=== PATIENT | female | born 1995 | race Caucasian/White ===

== ENCOUNTER 2020-01-07 08:39 | Outpatient (CLI) | payer OTHER, MEDICAID, SELFPAY ==
--- NOTE | ~2020-01-07 | US_ITS ---
EXAMINATION: US OB follow up DATE: 01/07/2020 09:12 INDICATION: Bicornuate uterus. History of miscarriage. TECHNIQUE: Real-time transabdominal obstetric ultrasound. FINDINGS: Comparison ultrasound dated 11/19/2019 There is a single living fetus in transverse presentation. The placenta is anterior without placenta previa. Placental margin is 3.6 cm to the cervix. cardiac activity and movement is noted with a heart rate of 163 beats per minute. T he amniotic fluid volume is subjectively normal. The following biometric data were obtained: BPD: 27mm corresponds to gestational age 14 weeks 6 days. Head circumference: 109mm corresponds to gestational age 15 weeks 2 days. Abdominal circumference: 95mm corresponds to gestational age 15 weeks 4 days. Femur length: 15mm corresponds to gestational age 14 weeks 3 days. Estimated weight: 112grams +/- 17grams.] IMPRESSION: 1. Single living intrauterine in transverse presentation with an estimated gestational age of 14 weeks 3 days by inititial ultrasound. EDC by initial ultrasound is 07/04/2020. Appropriate inte rval growth. Reviewed, dictated and finalized at location A. R BOOKER IMPRESSION: 1. Single living intrauterine in transverse presentation with an est imated gestational age of 14 weeks 3 days by inititial ultrasound. EDC by initi al ultrasound is 07/04/2020. Appropriate interval growth.
== END 2020-01-07 08:40 | disposition home or self-care (01) ==
LOC: ANHIMG 08:41
PROVIDERS: Visit Provider Obstetrics & Gynecology
DX: O34.02 Maternal care for unspecified congenital malformation of uterus, second trimester (principal); Q51.3 Bicornate uterus; Z3A.14 14 weeks gestation of pregnancy
CPT/HCPCS: 76816

== ENCOUNTER 2020-02-21 10:14 | Outpatient (CLI) | payer OTHER, SELFPAY | END 2020-02-21 11:10 | disposition home or self-care (01) | LOC: ANHOBOP 10:51 → ANHOBPP 10:52 | PROVIDERS: Visit Provider Obstetrics & Gynecology | DX: O26.859 Spotting complicating pregnancy, unspecified trimester (principal); Z3A.00 Weeks of gestation of pregnancy not specified | CPT/HCPCS: 84112; 99199 ==

== ENCOUNTER 2020-03-29 10:41 | Outpatient (CLI) | payer OTHER, MEDICAID, SELFPAY ==
[2020-03-29 12:01] LABS: Basophils Percent Auto 0.2 % (0.2-1.2); Eosinophils Absolute Auto 0.1 K/mm3 (0-0.3); Eosinophils Percent Auto 0.8 % (0-4.4); Hemoglobin 11.1 g/dL (12.0-15.0); Immature Granulocyte Absolute 0.05 K/mm3 (0.00-0.031); Immature Granulocyte Percent A 0.4 % (0-0.5); Lymphocytes Absolute Auto 1.41 K/mm3 (0.9-3.2); Lymphocytes Percent Auto 11.7 % (18.3-44.2); Mean Corpuscular HGB Conc 32.6 g/dl (32-36); Mean Corpuscular Hemoglobin 30.5 pg (26-34); Mean Corpuscular Volume 93.4 fl (80-100); Mean Platelet Volume 10.6 fl (7.4-10.4); Monocytes Absolute Auto 0.7 K/mm3 (0.1-0.6); Monocytes Percent Auto 5.7 % (2.6-8.5); Neutrophils Absolute Auto 9.7 K/mm3 (1.3-6.7); Neutrophils Percent Auto 81.2 % (45.5-73.1); Platelet Count Result 208 k/mm3 (150-375); Red Blood Count 3.64 M/mm3 (4.2-5.4); Red Cell Distribution Width 13.5 % (11.5-14.5)
[2020-03-29 12:19] LABS: Glucose 1 Hour PP 50gm Dose 130 mg/dL
== END 2020-03-29 10:42 | disposition home or self-care (01) ==
LOC: ANHLAB 10:43
PROVIDERS: PCP Family Medicine; Visit Provider Obstetrics & Gynecology
DX: Z34.90 Encounter for supervision of normal pregnancy, unspecified, unspecified trimester (principal); Z3A.00 Weeks of gestation of pregnancy not specified
CPT/HCPCS: 36415; 82947; 85025

== ENCOUNTER 2020-04-04 08:07 | Outpatient (CLI) | payer OTHER, MEDICAID, SELFPAY ==
[2020-04-04 08:31] LABS: Glucose Fasting 88 mg/dL
[2020-04-04 10:03] LABS: Glucose 1 Hour 137 mg/dL
[2020-04-04 11:12] LABS: Glucose 2 Hour 140 mg/dL
[2020-04-04 12:13] LABS: Glucose 3 Hour 123 mg/dL
== END 2020-04-04 08:08 | disposition home or self-care (01) ==
PROVIDERS: PCP Family Medicine; Visit Provider Obstetrics & Gynecology
DX: R73.01 Impaired fasting glucose (principal); O09.892 Supervision of other high risk pregnancies, second trimester; Z3A.00 Weeks of gestation of pregnancy not specified
CPT/HCPCS: 36415; 82951; 82952

== ENCOUNTER 2020-04-21 21:45 | Observation (INO) | payer OTHER, MEDICAID, SELFPAY ==
[2020-04-21] VITALS (8 sets, daily range): BP systolic 118–135; BP diastolic 69–85; PULSE 88–106; TEMP 36.8
--- NOTE | 2020-04-21 22:08 | PC.NURSE ---
2144- pt came to L&D c/o abdominal pain with tenderness all over, vaginal pressure, lower back pain that has been constant since 1930 tonight. denies bleeding. pt took tylenol at 1930 .
[2020-04-21 22:55] LABS: Add Urine Microscopic? YES; Appearance Urine Clear (Clear); Bacteria Urine Trace /hpf; Bilirubin Urine Negative (Negative); Blood Urine Negative (Negative); Color Urine Straw (Yellow); Glucose Urine UA Negative (Negative); Ketones Urine Trace mg/dL (Negative); Leukocyte Esterase Ur Negative LEU/UL (NEGATIVE); Nitrate Urine Negative (Negative); Protein Urine Negative (Negative); RBC Urine 0-2 /hpf (0-2); Specific Grav Ur 1.009 (1.001-1.035); Squamous Epithelial Cell Urine Few /hpf (Few); Urobilinogen Urine Negative mg/dL (<2.0); WBC Urine 0-3 /hpf (0-3)
[2020-04-21 23:24] LABS: Basophils Absolute Auto 0.1 K/mm3 (0.0-0.1); Basophils Percent Auto 0.3 % (0.2-1.2); Eosinophils Absolute Auto 0.1 K/mm3 (0-0.3); Eosinophils Percent Auto 0.7 % (0-4.4); Hemoglobin 10.5 g/dL (12.0-15.0); Immature Granulocyte Absolute 0.08 K/mm3 (0.00-0.031); Immature Granulocyte Percent A 0.5 % (0-0.5); Lymphocytes Percent Auto 10.5 % (18.3-44.2); Mean Corpuscular HGB Conc 32.8 g/dl (32-36); Mean Corpuscular Hemoglobin 30.4 pg (26-34); Mean Corpuscular Volume 92.8 fl (80-100); Mean Platelet Volume 10.9 fl (7.4-10.4); Monocytes Absolute Auto 0.9 K/mm3 (0.1-0.6); Monocytes Percent Auto 5.4 % (2.6-8.5); Neutrophils Absolute Auto 13.4 K/mm3 (1.3-6.7); Neutrophils Percent Auto 82.6 % (45.5-73.1); Platelet Count Result 180 k/mm3 (150-375); Red Blood Count 3.45 M/mm3 (4.2-5.4); Red Cell Distribution Width 13.4 % (11.5-14.5); White Blood Count 16.2 K/mm3 (4.5-10.0)
[2020-04-21 23:48] LABS: Alanine Aminotransferase 16 U/L (4-35); Albumin Level 3.8 g/dL (3.5-5.1); Alkaline Phosphatase 151 U/L (38-126); Aspartate Amino Transferase 29 U/L (14-36); Bilirubin,Total 0.2 mg/dL (0.2-1.3); Blood Urea Nitrogen 8 mg/dL (7-17); Calcium 9.6 mg/dL (8.4-10.2); Carbon Dioxide 25 mmol/L (22-30); Chloride 100 mmol/L (98-107); Estimated Glomerular Filt Rate > 60; Glucose 91 mg/dL (65-105); Potassium 3.6 mmol/L (3.4-5.0); Sodium 131 mmol/L (137-145)
[2020-04-22] VITALS: BP 122/84; PULSE 91
[2020-04-22 00:13] VITALS: BMI 33.7
--- NOTE | 2020-04-22 00:14 | LDADM ---
This patient, Ashley Katz, was admitted to [facility] on 04/21/20 at 21:45. Plans for labor, pain management and were discussed with patient. Patient/family oriented to hospital policies and general routines including ID bracelet, bed and alarms, visiting hours, pain management, procedures, bathroom and other care routines, personal items, smoking policy, room service/diet and guest tray routines, infant security routines, and visiting hours. Patient/Family are encouraged to report perceived risks to care and to ask questions if they do not understand what they are told or what they should do. See OBIX for further documentation.
--- NOTE | 2020-05-15 07:45 | P.PNOB_ITS ---
OB - Triage/Final Diagnosis Evaluation Laboratory results: Laboratory Tests 04/21/20 04/21/20 04/21/20 22:44 23:11 23:11 WBC 16.2 H RBC 3.45 L Hgb 10.5 L Hct 32.0 L MCV 92.8 MCH 30.4 MCHC 32.8 RDW 13.4 Plt Count 180 MPV 10.9 H Immature Gran % (Auto) 0.5 Neut % (Auto) 82.6 H Lymph % (Auto) 10.5 L [place] % (Auto) 5.4 Eos % (Auto) 0.7 Baso % (Auto) 0.3 Lymph # (Auto) 1.70 [place] # (Auto) 0.9 H Eos # (Auto) 0.1 Baso # (Auto) 0.1 Abs Immat Gran (auto) 0.08 H Absolute Neuts (auto) 13.4 H Absolute Nucleated RBC 0.0 Nucleated RBC % 0.0 Sodium 131 L Potassium 3.6 Chloride 100 Carbon Dioxide 25 BUN 8 Creatinine 0.60 L Estim Creat Clear Calc Not Reportable Estimated GFR > 60 Glucose 91 Calcium 9.6 Total Bilirubin 0.2 AST 29 ALT 16 Alkaline Phosphatase 151 H Total Protein 7.0 Albumin 3.8 Urine Color Straw Urine Appearance Clear Urine pH 6.0 Ur Specific [place] 1.009 Urine Protein Negative Urine Glucose (UA) Negative Urine Ketones Trace Ur Blood (Man) Negative Urine Nitrate Negative Urine Bilirubin Negative Urine Urobilinogen Negative Ur Leukocyte Esterase Negative Urine RBC 0-2 Urine WBC 0-3 Ur Squamous Epith Cells Few Urine Bacteria Trace Hyaline Casts 1-2 Final Diagnosis (1) Pain of round ligament affecting , antepartum: Code(s): O26.899 - Other specified related conditions, unspecified trimester; R10.2 - Pelvic and perineal pain Status: Acute
== END 2020-04-22 00:22 | disposition home or self-care (01) ==
PROVIDERS: Admitting Provider Obstetrics & Gynecology; PCP Family Medicine; Visit Provider Obstetrics & Gynecology
DX: O26.893 Other specified pregnancy related conditions, third trimester (principal); R10.9 Unspecified abdominal pain; Z3A.29 29 weeks gestation of pregnancy
CPT/HCPCS: 36415; 80053; 81001; 85025; 87086; G0378; G0379

== ENCOUNTER 2020-05-08 15:38 | Outpatient (CLI) | payer OTHER, MEDICAID, SELFPAY ==
--- NOTE | ~2020-05-08 | US_ITS ---
EXAMINATION: US OB follow up DATE: 05/08/2020 16:21 INDICATION: Estimated weight and amniotic fluid index assessment during third trimester pregnan cy TECHNIQUE: Real-time ultrasound of the pelvis was performed. The interpreting radiologist was not pre sent for the study. COMPARISON: 01/07/2020 FINDINGS: There is a single living fetus in vertex presentation. The placenta is anterior. card iac activity and movement are noted. heart rate is 154 beats per minute (bpm). The amniot ic fluid index is 22.9 cm which is normal. The following biometric data were obtained: Biparietal diameter (BPD): 8.7 cm; head circumference (HC): 30.4 cm; abdominal circumference (AC): 29 .0 cm; femur length (FL): 6.3 cm. These measurements are concordant. Estimated weight is 2149 g +/- 322 g, which correlates with the 75th percentile when 07/02/2020 is used as estimated date of delivery. As single measurements, these parameters are each equal to the following estimated gestational ages w ith ranges of +/- 2 standard deviations: BPD: 35 weeks 1 days +/- 3 weeks 1 days. HC: 33 weeks 6 days +/- 3 weeks 0 days. AC: 33 weeks 0 days +/- 3 weeks 0 days. FL: 32 weeks 5 days +/- 3 weeks 0 days. estimated gestational age based solely on measurements from this exam is 33 weeks 5 days +/- 2 weeks 3 days. IMPRESSION: 1. Single living fetus in vertex presentation. 2. Normal amniotic fluid index. 3. Estimated weight is 2149 g +/- 322 g, which correlates with the 75th percentile when 07/02/20 20 is used as estimated date of delivery. Reviewed, dictated and finalized at location A. IMPRESSION: 1. Single living fetus in vertex presentation. 2. Normal amniotic fluid index. 3. Estimated weight is 2149 g +/- 322 g, which correlates with the 75th p ercentile when 07/02/2020 is used as estimated date of delivery.
== END 2020-05-08 15:39 | disposition home or self-care (01) ==
PROVIDERS: PCP Family Medicine; Visit Provider Obstetrics & Gynecology
DX: O09.893 Supervision of other high risk pregnancies, third trimester (principal); Z3A.00 Weeks of gestation of pregnancy not specified
CPT/HCPCS: 76816

== ENCOUNTER 2020-05-14 10:15 | Outpatient (CLI) | payer OTHER, MEDICAID, SELFPAY ==
[2020-05-14 10:31] VITALS: BP 126/83; PULSE 112
[2020-05-14 10:45] VITALS: BP 126/83; PULSE 83
[2020-05-14 11:00] VITALS: BP 120/78; PULSE 112
[2020-05-14 11:00] LABS: Basophils Percent Auto 0.4 % (0.2-1.2); Eosinophils Absolute Auto 0.1 K/mm3 (0-0.3); Eosinophils Percent Auto 0.8 % (0-4.4); Hematocrit 31.8 % (37.0-47.0); Hemoglobin 10.4 g/dL (12.0-15.0); Immature Granulocyte Absolute 0.05 K/mm3 (0.00-0.031); Immature Granulocyte Percent A 0.4 % (0-0.5); Lymphocytes Absolute Auto 1.32 K/mm3 (0.9-3.2); Lymphocytes Percent Auto 11.7 % (18.3-44.2); Mean Corpuscular HGB Conc 32.7 g/dl (32-36); Mean Corpuscular Hemoglobin 30.1 pg (26-34); Mean Corpuscular Volume 91.9 fl (80-100); Mean Platelet Volume 11.7 fl (7.4-10.4); Monocytes Percent Auto 8.7 % (2.6-8.5); Neutrophils Absolute Auto 8.8 K/mm3 (1.3-6.7); Platelet Count Result 183 k/mm3 (150-375); Red Blood Count 3.46 M/mm3 (4.2-5.4); Red Cell Distribution Width 13.9 % (11.5-14.5); White Blood Count 11.3 K/mm3 (4.5-10.0)
[2020-05-14 11:05] LABS: Add Urine Microscopic? YES; Appearance Urine Clear (Clear); Bacteria Urine 2+ /hpf; Bilirubin Urine Negative (Negative); Blood Urine Negative (Negative); Calcium Oxalate Crystals Urine Present /hpf; Color Urine Yellow (Yellow); Glucose Urine UA Negative (Negative); Ketones Urine Negative (Negative); Leukocyte Esterase Ur Trace LEU/UL (NEGATIVE); Mucus Urine Few /lpf; Nitrate Urine Negative (Negative); Protein Urine 1+ mg/dL (Negative); RBC Urine 0-2 /hpf (0-2); Specific Grav Ur 1.026 (1.001-1.035); Squamous Epithelial Cell Urine Many /hpf (Few); Urobilinogen Urine Negative mg/dL (<2.0)
[2020-05-14 11:10] LABS: Creatinine Urine 205.5 mg/dL; Total Protein Urine Random 16 mg/dL
[2020-05-14 11:11] LABS: Alanine Aminotransferase 15 U/L (4-35); Albumin Level 3.8 g/dL (3.5-5.1); Alkaline Phosphatase 158 U/L (38-126); Aspartate Amino Transferase 23 U/L (14-36); Bilirubin,Total 0.1 mg/dL (0.2-1.3); Blood Urea Nitrogen 6 mg/dL (7-17); Calcium 9.1 mg/dL (8.4-10.2); Carbon Dioxide 24 mmol/L (22-30); Chloride 104 mmol/L (98-107); Estimated Glomerular Filt Rate > 60; Glucose 94 mg/dL (65-105); Sodium 133 mmol/L (137-145); Uric Acid 4.9 mg/dL (2.5-7.5)
[2020-05-14 11:16] VITALS: BP 109/64; PULSE 109
== END 2020-05-14 11:30 | disposition home or self-care (01) ==
LOC: ANHOBOP 10:20 → ANHOBPP 10:20
PROVIDERS: PCP Family Medicine; Visit Provider Obstetrics & Gynecology
DX: O13.9 Gestational [pregnancy-induced] hypertension without significant proteinuria, unspecified trimester (principal)
CPT/HCPCS: 36415; 59025; 80053; 81001; 82570; 84156; 84550; 85025; 87086; 87088; 99199

== ENCOUNTER 2020-05-15 11:35 | Outpatient (CLI) | payer OTHER, MEDICAID, SELFPAY ==
[2020-05-15 11:47] VITALS: BMI 35.0
[2020-05-15 12:41] LABS: Creatinine 24 Hour Urine 1.4 gm/24 (0.8-1.8); Total Volume 24 Hour Urine 1600 ml
[2020-05-15 12:44] LABS: Total Protein Urine Random 10 mg/dL
[2020-05-15 13:01] LABS: Total Protein Urine 24 Hr 160 MG/DAY (28-141); Total Volume 24 Hour Urine 1600 ml
== END 2020-05-15 11:36 | disposition home or self-care (01) ==
LOC: ANHOBOP 11:42
PROVIDERS: PCP Family Medicine; Visit Provider Obstetrics & Gynecology
DX: O13.9 Gestational [pregnancy-induced] hypertension without significant proteinuria, unspecified trimester (principal)
CPT/HCPCS: 81050; 82570; 84156

== ENCOUNTER 2020-05-29 15:48 | Outpatient (CLI) | payer OTHER, MEDICAID, SELFPAY ==
[2020-05-29 16:10] VITALS: BP 129/80; PULSE 95
[2020-05-29 16:15] VITALS: BP 135/79; PULSE 91
[2020-05-29 16:30] VITALS: BP 126/79; PULSE 86
[2020-05-29 16:45] VITALS: BP 122/84; PULSE 92
[2020-05-29 17:13] LABS: Basophils Percent Auto 0.4 % (0.2-1.2); Eosinophils Absolute Auto 0.1 K/mm3 (0-0.3); Eosinophils Percent Auto 0.7 % (0-4.4); Hematocrit 28.9 % (37.0-47.0); Hemoglobin 9.4 g/dL (12.0-15.0); Immature Granulocyte Absolute 0.04 K/mm3 (0.00-0.031); Immature Granulocyte Percent A 0.4 % (0-0.5); Lymphocytes Absolute Auto 1.47 K/mm3 (0.9-3.2); Lymphocytes Percent Auto 13.6 % (18.3-44.2); Mean Corpuscular HGB Conc 32.5 g/dl (32-36); Mean Corpuscular Hemoglobin 29.7 pg (26-34); Mean Corpuscular Volume 91.5 fl (80-100); Mean Platelet Volume 11.7 fl (7.4-10.4); Monocytes Absolute Auto 0.9 K/mm3 (0.1-0.6); Monocytes Percent Auto 7.9 % (2.6-8.5); Neutrophils Absolute Auto 8.3 K/mm3 (1.3-6.7); Platelet Count Result 161 k/mm3 (150-375); Red Blood Count 3.16 M/mm3 (4.2-5.4); Red Cell Distribution Width 14.2 % (11.5-14.5); White Blood Count 10.8 K/mm3 (4.5-10.0)
[2020-05-29 17:15] VITALS: BP 132/78; PULSE 83
[2020-05-29 17:24] LABS: Alanine Aminotransferase 15 U/L (4-35); Albumin Level 3.3 g/dL (3.5-5.1); Alkaline Phosphatase 146 U/L (38-126); Aspartate Amino Transferase 23 U/L (14-36); Bilirubin,Total < 0.1 mg/dL (0.2-1.3); Blood Urea Nitrogen 10 mg/dL (7-17); Calcium 8.8 mg/dL (8.4-10.2); Carbon Dioxide 23 mmol/L (22-30); Chloride 105 mmol/L (98-107); Estimated Glomerular Filt Rate > 60; Glucose 101 mg/dL (65-105); Potassium 3.8 mmol/L (3.4-5.0); Sodium 134 mmol/L (137-145); Uric Acid 5.3 mg/dL (2.5-7.5)
[2020-05-29 17:30] VITALS: BP 133/85; PULSE 82
--- NOTE | 2020-05-29 17:30 | PC.NURSE ---
Dr. Garcia on unit. BPs given and lab results given. March D/C home with 24hr urine.
[2020-05-29 17:41] LABS: Creatinine Urine 296.1 mg/dL; Total Protein Urine Random 16 mg/dL
== END 2020-05-29 17:35 | disposition home or self-care (01) ==
LOC: ANHOBOP 15:52 → ANHOBPP 15:52
PROVIDERS: PCP Family Medicine; Visit Provider Obstetrics & Gynecology
DX: O13.9 Gestational [pregnancy-induced] hypertension without significant proteinuria, unspecified trimester (principal); Z3A.00 Weeks of gestation of pregnancy not specified
CPT/HCPCS: 36415; 59025; 80053; 82570; 84156; 84550; 85025; 99199

== ENCOUNTER 2020-05-31 12:43 | Outpatient (CLI) | payer OTHER, MEDICAID, SELFPAY ==
[2020-05-31 13:01] VITALS: BMI 36.1
[2020-05-31 14:11] LABS: Collection Time Urine 24 HOURS
[2020-05-31 14:25] LABS: Patient Weight 210 Lbs; Total Protein Urine Random 14 mg/dL
[2020-05-31 14:37] LABS: Creatinine Clearance Urine 109.4 ml/min (75-125); Total Protein Urine 24 Hr 164 MG/DAY (28-141); Total Volume 24 Hour Urine 1175 ml
== END 2020-05-31 12:44 | disposition home or self-care (01) ==
LOC: ANHOBOP 12:47
PROVIDERS: PCP Family Medicine; Visit Provider Obstetrics & Gynecology
DX: O13.9 Gestational [pregnancy-induced] hypertension without significant proteinuria, unspecified trimester (principal)
CPT/HCPCS: 81050; 82575; 84156

== ENCOUNTER 2020-06-05 09:43 | Outpatient (CLI) | payer OTHER, MEDICAID, SELFPAY ==
--- NOTE | ~2020-06-05 | US_ITS ---
EXAMINATION: US OB limited w BPP DATE: 06/05/2020 11:29 INDICATION: Hypertension. TECHNIQUE: Real-time pelvic ultrasound was performed. COMPARISON: Ultrasound 05/08/2020 FINDINGS: There is a single living fetus in vertex presentation. The placenta is anterior. heart rate is 147 beats per minute (bpm). The amniotic fluid index is 25.3 cm, which is high (95th percentile is 2 4.9 cm) Biophysical profile performed by the technologist: breathing (30 sec sustained breathing in 30 minutes): 2 out of 2 movement (3 gross body movements in 30 minutes): 2 out of 2 tone (one episode of krqtbde-dupioygas-vrwzwmk limb movement): 2 out of 2 Amniotic fluid pocket (2 cm): 2 out of 2 Total score: 8 out of 8 IMPRESSION: 1. Single living fetus in vertex presentation. 2. Biophysical profile 8 out of 8. 3. Polyhydramnios. Reviewed, dictated and finalized at location A.
[2020-06-05 09:58] VITALS: BP 133/92; PULSE 80
[2020-06-05 10:15] VITALS: BP 130/86; PULSE 93
[2020-06-05 10:30] VITALS: BP 131/81; PULSE 88
[2020-06-05 10:31] VITALS: BP 131/81; PULSE 88
[2020-06-05 10:49] LABS: Basophils Percent Auto 0.4 % (0.2-1.2); Eosinophils Absolute Auto 0.1 K/mm3 (0-0.3); Eosinophils Percent Auto 0.6 % (0-4.4); Hematocrit 31.4 % (37.0-47.0); Hemoglobin 10.1 g/dL (12.0-15.0); Immature Granulocyte Absolute 0.04 K/mm3 (0.00-0.031); Immature Granulocyte Percent A 0.4 % (0-0.5); Lymphocytes Absolute Auto 1.15 K/mm3 (0.9-3.2); Lymphocytes Percent Auto 11.4 % (18.3-44.2); Mean Corpuscular HGB Conc 32.2 g/dl (32-36); Mean Corpuscular Hemoglobin 29.5 pg (26-34); Mean Corpuscular Volume 91.8 fl (80-100); Mean Platelet Volume 12.4 fl (7.4-10.4); Monocytes Absolute Auto 0.9 K/mm3 (0.1-0.6); Monocytes Percent Auto 8.4 % (2.6-8.5); Neutrophils Absolute Auto 7.9 K/mm3 (1.3-6.7); Neutrophils Percent Auto 78.8 % (45.5-73.1); Platelet Count Result 169 k/mm3 (150-375); Red Blood Count 3.42 M/mm3 (4.2-5.4); Red Cell Distribution Width 14.5 % (11.5-14.5); White Blood Count 10.1 K/mm3 (4.5-10.0)
[2020-06-05 10:53] LABS: Add Urine Microscopic? YES; Appearance Urine Cloudy (Clear); Bacteria Urine 2+ /hpf; Bilirubin Urine Negative (Negative); Blood Urine Negative (Negative); Color Urine Yellow (Yellow); Glucose Urine UA Negative (Negative); Ketones Urine Negative (Negative); Leukocyte Esterase Ur 1+ LEU/UL (NEGATIVE); Mucus Urine Few /lpf; Nitrate Urine Negative (Negative); Protein Urine 2+ mg/dL (Negative); Specific Grav Ur 1.024 (1.001-1.035); Squamous Epithelial Cell Urine Many /hpf (Few); Urobilinogen Urine Negative mg/dL (<2.0)
[2020-06-05 11:00] LABS: Alanine Aminotransferase 15 U/L (4-35); Albumin Level 3.6 g/dL (3.5-5.1); Alkaline Phosphatase 153 U/L (38-126); Aspartate Amino Transferase 21 U/L (14-36); Bilirubin,Total < 0.1 mg/dL (0.2-1.3); Blood Urea Nitrogen 8 mg/dL (7-17); Calcium 9.4 mg/dL (8.4-10.2); Carbon Dioxide 24 mmol/L (22-30); Chloride 103 mmol/L (98-107); Creatinine Urine 266.2 mg/dL; Estimated Glomerular Filt Rate > 60; Glucose 82 mg/dL (65-105); Potassium 4.1 mmol/L (3.4-5.0); Sodium 132 mmol/L (137-145); Total Protein Urine Random 55 mg/dL; Uric Acid 5.9 mg/dL (2.5-7.5)
[2020-06-05 11:40] LABS: HIV 1/2 Ab P24 Ag Result Negative (Negative)
[2020-06-05 11:56] LABS: Rapid Plasma Reagin Non-Reactive (NonReactive)
== END 2020-06-05 11:55 | disposition home or self-care (01) ==
LOC: ANHOBOP 09:51 → ANHOBPP 09:52
PROVIDERS: PCP Family Medicine; Visit Provider Obstetrics & Gynecology
DX: O13.9 Gestational [pregnancy-induced] hypertension without significant proteinuria, unspecified trimester (principal); O40.9XX0 Polyhydramnios, unspecified trimester, not applicable or unspecified; Z3A.00 Weeks of gestation of pregnancy not specified
CPT/HCPCS: 36415; 59025; 76815; 76819; 80053; 81001; 82570; 84156; 84550; 85025; 86592; 86703; 87086; 87088; 99199; G0432

== ENCOUNTER 2020-06-08 09:35 | Outpatient (RCR) | payer OTHER, MEDICAID, SELFPAY ==
[2020-06-01 19:13] VITALS: BP 138/86; PULSE 106
[2020-06-08 10:06] VITALS: BP 130/81; PULSE 92
== END 2020-07-05 07:41 | disposition home or self-care (01) ==
LOC: ANHOBOP 09:35
PROVIDERS: PCP Family Medicine; Visit Provider Obstetrics & Gynecology
DX: O24.419 Gestational diabetes mellitus in pregnancy, unspecified control (principal); Z3A.35 35 weeks gestation of pregnancy; O16.3 Unspecified maternal hypertension, third trimester; Z3A.36 36 weeks gestation of pregnancy
CPT/HCPCS: 59025

== ENCOUNTER 2020-06-11 17:56 | Inpatient (IN) | payer OTHER, MEDICAID, SELFPAY ==
[2020-06-11] VITALS (10 sets, daily range): BP systolic 126–154; BP diastolic 73–103; PULSE 76–93; TEMP 36.4–36.8; BMI 35.7
[2020-06-11 19:11] LABS: Basophils Percent Auto 0.3 % (0.2-1.2); Eosinophils Absolute Auto 0.1 K/mm3 (0-0.3); Eosinophils Percent Auto 0.8 % (0-4.4); Hematocrit 30.6 % (37.0-47.0); Immature Granulocyte Absolute 0.07 K/mm3 (0.00-0.031); Immature Granulocyte Percent A 0.6 % (0-0.5); Lymphocytes Absolute Auto 1.64 K/mm3 (0.9-3.2); Lymphocytes Percent Auto 13.7 % (18.3-44.2); Mean Corpuscular HGB Conc 32.7 g/dl (32-36); Mean Corpuscular Hemoglobin 29.5 pg (26-34); Mean Corpuscular Volume 90.3 fl (80-100); Mean Platelet Volume 12.1 fl (7.4-10.4); Monocytes Absolute Auto 0.9 K/mm3 (0.1-0.6); Monocytes Percent Auto 7.5 % (2.6-8.5); Neutrophils Absolute Auto 9.2 K/mm3 (1.3-6.7); Neutrophils Percent Auto 77.1 % (45.5-73.1); Platelet Count Result 174 k/mm3 (150-375); Red Blood Count 3.39 M/mm3 (4.2-5.4); Red Cell Distribution Width 14.6 % (11.5-14.5); White Blood Count 11.9 K/mm3 (4.5-10.0)
[2020-06-11] MEDS: DINOPROSTONE 10 MG VAG INSERT VAGINAL (19:15)
[2020-06-11 19:21] LABS: Alanine Aminotransferase 17 U/L (4-35); Albumin Level 3.7 g/dL (3.5-5.1); Alkaline Phosphatase 165 U/L (38-126); Anion Gap 11.8 mmol/L (7-16); Aspartate Amino Transferase 26 U/L (14-36); Bilirubin,Total 0.1 mg/dL (0.2-1.3); Blood Urea Nitrogen 8 mg/dL (7-17); Calcium 9.1 mg/dL (8.4-10.2); Carbon Dioxide 20 mmol/L (22-30); Chloride 105 mmol/L (98-107); Estimated Glomerular Filt Rate > 60; Glucose 108 mg/dL (65-105); Potassium 3.8 mmol/L (3.4-5.0); Sodium 133 mmol/L (137-145)
[2020-06-11 19:22] LABS: Uric Acid 5.5 mg/dL (2.5-7.5)
[2020-06-11 20:02] LABS: HIV 1/2 Ab P24 Ag Result Negative (Negative)
[2020-06-11 20:03] LABS: Hepatitis B Surface Antigen Negative (Negative)
[2020-06-11] MEDS: CALCIUM CARBONATE (TUMS) 500 MG (200 MG ELEMENTAL) PO (21:29)
--- NOTE | 2020-06-11 22:25 | LDADM ---
This patient, Ashley Katz, was admitted to Labor/Delivery/Recovery 107 on 06/11/20 at 17:56. Plans for labor, pain management and were discussed with patient. Patient/family oriented to hospital policies and general routines including ID bracelet, bed and alarms, visiting hours, pain management, procedures, bathroom and other care routines, personal items, smoking policy, room service/diet and guest tray routines, infant security routines, and visiting hours. Patient/Family are encouraged to report perceived risks to care and to ask questions if they do not understand what they are told or what they should do. See OBIX for further documentation.
[2020-06-12] VITALS (88 sets, daily range): BP systolic 93–198; BP diastolic 57–148; PULSE 71–125; RESP 16; TEMP 36.4–37.1; O2SAT 86–100
[2020-06-12] MEDS: ACETAMINOPHEN 500 MG TABLET 1000 MG PO (04:57)
[2020-06-12] MEDS: CALCIUM CARBONATE (TUMS) 500 MG (200 MG ELEMENTAL) PO (04:58)
[2020-06-12 07:14] LABS: Rapid Plasma Reagin Non-Reactive (NonReactive)
--- NOTE | 2020-06-12 07:37 | PM.OBPNVD ---
OB - PN: Subj Subjective Date/time seen: 06/12/20 07:37 FHT 140, Cat 1, irreg ctx, /blt. Start Pitocin. OB - PN: Obj Data Labs CBC & Chem 7: 06/11/20 19:00 06/11/20 19:00 Labs: Laboratory Results - last 24 hr 06/11/20 06/11/20 06/11/20 19:00 19:00 19:00 WBC 11.9 H RBC 3.39 L Hgb 10.0 L Hct 30.6 L MCV 90.3 MCH 29.5 MCHC 32.7 RDW 14.6 H Plt Count 174 MPV 12.1 H Immature Gran % (Auto) 0.6 H Neut % (Auto) 77.1 H Lymph % (Auto) 13.7 L [place] % (Auto) 7.5 Eos % (Auto) 0.8 Baso % (Auto) 0.3 Lymph # (Auto) 1.64 [place] # (Auto) 0.9 H Eos # (Auto) 0.1 Baso # (Auto) 0.0 Abs Immat Gran (auto) 0.07 H Absolute Neuts (auto) 9.2 H Absolute Nucleated RBC 0.0 Nucleated RBC % 0.0 Sodium Potassium Chloride Carbon Dioxide Anion Gap BUN Creatinine Estim Creat Clear Calc Estimated GFR Glucose Uric Acid 5.5 Calcium Total Bilirubin AST ALT Alkaline Phosphatase Total Protein Albumin RPR Hep Bs Antigen HIV 1&2 Ab/P24 Ag 4thGn Negative Blood Type Antibody Screen 06/11/20 06/11/20 06/11/20 19:00 19:00 19:00 WBC RBC Hgb Hct MCV MCH MCHC RDW Plt Count MPV Immature Gran % (Auto) Neut % (Auto) Lymph % (Auto) [place] % (Auto) Eos % (Auto) Baso % (Auto) Lymph # (Auto) [place] # (Auto) Eos # (Auto) Baso # (Auto) Abs Immat Gran (auto) Absolute Neuts (auto) Absolute Nucleated RBC Nucleated RBC % Sodium 133 L Potassium 3.8 Chloride 105 Carbon Dioxide 20 L Anion Gap 11.8 BUN 8 Creatinine 0.60 L Estim Creat Clear Calc Not Reportable Estimated GFR > 60 Glucose 108 H Uric Acid Calcium 9.1 Total Bilirubin 0.1 L AST 26 ALT 17 Alkaline Phosphatase 165 H Total Protein 7.0 Albumin 3.7 RPR Non-reactive Hep Bs Antigen HIV 1&2 Ab/P24 Ag 4thGn Blood Type AB Positive Antibody Screen Negative 06/11/20 19:00 WBC RBC Hgb Hct MCV MCH MCHC RDW Plt Count MPV Immature Gran % (Auto) Neut % (Auto) Lymph % (Auto) [place] % (Auto) Eos % (Auto) Baso % (Auto) Lymph # (Auto) [place] # (Auto) Eos # (Auto) Baso # (Auto) Abs Immat Gran (auto) Absolute Neuts (auto) Absolute Nucleated RBC Nucleated RBC % Sodium Potassium Chloride Carbon Dioxide Anion Gap BUN Creatinine Estim Creat Clear Calc Estimated GFR Glucose Uric Acid Calcium Total Bilirubin AST ALT Alkaline Phosphatase Total Protein Albumin RPR Hep Bs Antigen Negative HIV 1&2 Ab/P24 Ag 4thGn Blood Type Antibody Screen OB - PN A/P Time Spent With Patient Time: Total time spent is greater than 50% in coordination of care (as documented) at patient's floor/unit and/or counseling patient:
--- NOTE | 2020-06-12 07:38 | PM.IMHP ---
H&P: HPI History of Present Illness Chief complaint: Induction of Labor Narrative: Ashley Katz is a 25 year old female at 37 weeks [facility]. EDC of 07/02/20 by a 7w5d ultrasound and consistent with 20 week ultrasound. She had unsure LMP. She has a history of bicornuate/septate uterus and has had normal growth ultrasounds. surveillance has been normal. She was on baby ASA since 12 weeks due to history of pre-eclampsia with her first . She had an elevated one hour and normal 3hr. She was diagnosed with gestational hypertension at 36 weeks with an elevated bp in office 33 weeks and then had elevated bp with diastolics low 90s at home at 36 weeks. She has mild headache, no scotomata or RUQ pain. PIH labs today normal. LAbs- AB+, ab-neg, HIV neg, RPR-nr,HEPBsag-neg, HGBEP-nl, CF-neg, HepCab-neg, Rub-im, UrCx-neg, TSH nl, Vit D 20.8, GC/CHL -/-, Pap normal. h/h13/40, 24-28 wk lab- h/h-, ihr-130, 3hr- 88/137/140/123, third trim- HIVneg, RPR, neg, GBS neg,H/H/09/14 Review of Systems Review of Systems: All systems reviewed & are unremarkable except as noted in HPI and below Constitutional: Constitutional: Reports no additional constitutional complaints Eyes: Eyes: Denies spots in vision ENT: Reports system reviewed and no additional complaints, except as documented and Denies headache(s) Cardiovascular: Cardiovascular: Denies chest pain and Denies dyspnea Respiratory: Respiratory: Denies dyspnea Gastrointestinal: Gastrointestinal: Reports no additional gastrointestinal complaints Genitourinary: Genitourinary: Reports amenorrhea Musculoskeletal: Musculoskeletal: Reports no additional musculoskeletal complaints Integumentary/Breasts: Skin/Breast: Denies breast mass and Denies rash Neurologic: Denies headache(s) Psychiatric: Psychiatric: Reports no additional psychiatric complaints [facility] Social History Social History Years smoked: 4 Smoking status: Former smoker Tobacco type: cigarettes Second hand tobacco smoke exposure: No Alcohol intake: never Substance use: never Gender identity (if verbalized by the patient): Female Spiritual care concerns: No Meds Home Medications and Allergies Home Medications Medication Instructions Recorded Confirmed Type PNV cmb#95-ferrous fumarate-FA 1 tablet PO DAILY 06/11/20 06/11/20 History [] Allergies Allergy/AdvReac Type Severity Reaction Status Date / Time No Known Allergies Allergy Verified 06/05/20 08:50 Vital Signs Vital Signs - 24 hr 06/11/20 18:31 06/11/20 19:01 06/11/20 19:15 Temperature 97.5 F L Pulse Rate 93 81 Blood Pressure 140/93 H 141/84 H 06/11/20 19:31 06/11/20 20:01 06/11/20 20:31 Temperature Pulse Rate 79 81 80 Blood Pressure 126/73 142/84 H 142/85 H 06/11/20 21:01 06/11/20 21:15 06/11/20 21:17 Temperature 98.3 F Pulse Rate 80 80 Blood Pressure 154/103 H 143/95 H 06/11/20 21:31 06/12/20 01:24 06/12/20 04:53 Temperature 97.5 F L 97.6 F Pulse Rate 76 80 Blood Pressure 142/88 H 131/95 H 06/12/20 04:59 06/12/20 05:01 06/12/20 05:31 Temperature Pulse Rate 90 84 73 Blood Pressure 146/97 H 138/94 H 126/73 06/12/20 06:01 06/12/20 07:01 Temperature Pulse Rate 81 83 Blood Pressure 122/73 138/94 H Exam Const: General: no acute distress Eyes: General: appearance normal, both eyes and all related structures Resp: Effort & Inspection: normal respiratory effort Cardio: Rate: regular rate GI: Other: Gravid no fundal tenderness no right upper quadrant pain Skin: General skin exam: no rashes or lesions noted Neuro: Cognition (Neuro): normal cognition Extrem: General: normal to inspection Psych: Mental Status: mental status grossly normal H&P: Results Labs Labs: Short CBC 06/11/20 Range/Units 19:00 WBC 11.9 H (4.5-10.0) K/mm3
--- NOTE | 2020-06-12 08:20 | WPDANESEPP ---
Anes - Eval Pre Procedure Procedure: labor epidural Date/Time: 06/12/20 08:20 Surgeon: timur Pre Op Diagnosis: Induction of Labor Patient Data Age: 25 Gender: F Height: 1.63 m Weight: 94.5 kg Last Vital Signs Temp 36.4 C 06/12/20 04:53 Pulse 83 06/12/20 07:01 BP 138/94 H 06/12/20 07:01 Allergies Allergy/AdvReac Type Severity Reaction Status Date / Time No Known Allergies Allergy Verified 06/05/20 08:50 Home Medications Medication Instructions Recorded Confirmed Type PNV cmb#95-ferrous fumarate-FA 1 tablet PO DAILY 06/11/20 06/11/20 History [] Laboratory Tests 06/11/20 06/11/20 06/11/20 19:00 19:00 19:00 WBC 11.9 K/mm3 H K/mm3 (4.5-10.0) RBC 3.39 M/mm3 L M/mm3 (4.2-5.4) Hgb 10.0 g/dL L g/dL (12.0-15.0) Hct 30.6 % L % (37.0-47.0) MCV 90.3 fl fl (80-100) MCH 29.5 pg pg (26-34) MCHC 32.7 g/dl g/dl (32-36) RDW 14.6 % H % (11.5-14.5) Plt Count 174 k/mm3 k/mm3 (150-375) MPV 12.1 fl H fl (7.4-10.4) Immature Gran % (Auto) 0.6 % H % (0-0.5) Neut % (Auto) 77.1 % H % (45.5-73.1) Lymph % (Auto) 13.7 % L % (18.3-44.2) [place] % (Auto) 7.5 % % (2.6-8.5) Eos % (Auto) 0.8 % % (0-4.4) Baso % (Auto) 0.3 % % (0.2-1.2) Lymph # (Auto) 1.64 K/mm3 K/mm3 (0.9-3.2) [place] # (Auto) 0.9 K/mm3 H K/mm3 (0.1-0.6) Eos # (Auto) 0.1 K/mm3 K/mm3 (0-0.3) Baso # (Auto) 0.0 K/mm3 K/mm3 (0.0-0.1) Abs Immat Gran (auto) 0.07 K/mm3 H K/mm3 (0.00-0.031) Absolute Neuts (auto) 9.2 K/mm3 H K/mm3 (1.3-6.7) Absolute Nucleated RBC 0.0 K/mm3 K/mm3 (0.0-0.012) Nucleated RBC % 0.0 % % (0.0-0.2) Sodium Potassium Chloride Carbon Dioxide Anion Gap BUN Creatinine Estim Creat Clear Calc Estimated GFR Glucose Uric Acid 5.5 mg/dL mg/dL (2.5-7.5) Calcium Total Bilirubin AST ALT Alkaline Phosphatase Total Protein Albumin RPR Hep Bs Antigen HIV 1&2 Ab/P24 Ag 4thGn Negative (Negative) Blood Type Antibody Screen 06/11/20 06/11/20 06/11/20 19:00 19:00 19:00 WBC RBC Hgb Hct MCV MCH MCHC RDW Plt Count MPV Immature Gran % (Auto) Neut % (Auto) Lymph % (Auto) [place] % (Auto) Eos % (Auto) Baso % (Auto) Lymph # (Auto) [place] # (Auto) Eos # (Auto) Baso # (Auto) Abs Immat Gran (auto) Absolute Neuts (auto) Absolute Nucleated RBC Nucleated RBC % Sodium 133 mmol/L L mmol/L (137-145) Potassium 3.8 mmol/L mmol/L (3.4-5.0) Chloride 105 mmol/L mmol/L (98-107) Carbon Dioxide 20 mmol/L L mmol/L (22-30) Anion Gap 11.8 mmol/L mmol/L (7-16) BUN 8 mg/dL mg/dL (7-17) Creatinine 0.60 mg/dL L mg/dL (0.7-1.0) Estim Creat Clear Calc Not Reportable Estimated GFR > 60 (59 - ) Glucose 108 mg/dL H mg/dL (65-105) Uric Acid Calcium 9.1 mg/dL mg/dL (8.4-10.2) Total Bilirubin 0.1 mg/dL L mg/dL (0.2-1.3) AST 26 U/L U/L (14-36) ALT 17 U/L U/L (4-35) Alkaline Phosphatase 165 U/L H U/L (38-126) Total Protein 7.0 g/dL g/dL (6.3-8.2) Albumin 3.7 g/dL g/dL (3.5-5.1) RPR Non-reactive (NonReactive) Hep Bs
[2020-06-12] MEDS: OXYTOCIN 30 UNITS/NS 500 ML 30 UNITS/500 ML BAG IV CONT (08:25)
[2020-06-12] MEDS: LACTATED RINGERS 1,000 ML 125 ML IV CONT ×2 (08:25→11:34)
--- NOTE | 2020-06-12 13:47 | PM.OBPNVD ---
OB - PN: Subj Subjective Date/time seen: 06/12/20 13:47 FHT 140, Cat 1, AROM clear, /2. Continue Pitocin. OB - PN: Obj Data Labs CBC & Chem 7: 06/11/20 19:00 06/11/20 19:00 Labs: Laboratory Results - last 24 hr 06/11/20 06/11/20 06/11/20 19:00 19:00 19:00 WBC 11.9 H RBC 3.39 L Hgb 10.0 L Hct 30.6 L MCV 90.3 MCH 29.5 MCHC 32.7 RDW 14.6 H Plt Count 174 MPV 12.1 H Immature Gran % (Auto) 0.6 H Neut % (Auto) 77.1 H Lymph % (Auto) 13.7 L [place] % (Auto) 7.5 Eos % (Auto) 0.8 Baso % (Auto) 0.3 Lymph # (Auto) 1.64 [place] # (Auto) 0.9 H Eos # (Auto) 0.1 Baso # (Auto) 0.0 Abs Immat Gran (auto) 0.07 H Absolute Neuts (auto) 9.2 H Absolute Nucleated RBC 0.0 Nucleated RBC % 0.0 Sodium Potassium Chloride Carbon Dioxide Anion Gap BUN Creatinine Estim Creat Clear Calc Estimated GFR Glucose Uric Acid 5.5 Calcium Total Bilirubin AST ALT Alkaline Phosphatase Total Protein Albumin RPR Hep Bs Antigen HIV 1&2 Ab/P24 Ag 4thGn Negative Blood Type Antibody Screen 06/11/20 06/11/20 06/11/20 19:00 19:00 19:00 WBC RBC Hgb Hct MCV MCH MCHC RDW Plt Count MPV Immature Gran % (Auto) Neut % (Auto) Lymph % (Auto) [place] % (Auto) Eos % (Auto) Baso % (Auto) Lymph # (Auto) [place] # (Auto) Eos # (Auto) Baso # (Auto) Abs Immat Gran (auto) Absolute Neuts (auto) Absolute Nucleated RBC Nucleated RBC % Sodium 133 L Potassium 3.8 Chloride 105 Carbon Dioxide 20 L Anion Gap 11.8 BUN 8 Creatinine 0.60 L Estim Creat Clear Calc Not Reportable Estimated GFR > 60 Glucose 108 H Uric Acid Calcium 9.1 Total Bilirubin 0.1 L AST 26 ALT 17 Alkaline Phosphatase 165 H Total Protein 7.0 Albumin 3.7 RPR Non-reactive Hep Bs Antigen HIV 1&2 Ab/P24 Ag 4thGn Blood Type AB Positive Antibody Screen Negative 06/11/20 19:00 WBC RBC Hgb Hct MCV MCH MCHC RDW Plt Count MPV Immature Gran % (Auto) Neut % (Auto) Lymph % (Auto) [place] % (Auto) Eos % (Auto) Baso % (Auto) Lymph # (Auto) [place] # (Auto) Eos # (Auto) Baso # (Auto) Abs Immat Gran (auto) Absolute Neuts (auto) Absolute Nucleated RBC Nucleated RBC % Sodium Potassium Chloride Carbon Dioxide Anion Gap BUN Creatinine Estim Creat Clear Calc Estimated GFR Glucose Uric Acid Calcium Total Bilirubin AST ALT Alkaline Phosphatase Total Protein Albumin RPR Hep Bs Antigen Negative HIV 1&2 Ab/P24 Ag 4thGn Blood Type Antibody Screen OB - PN A/P Time Spent With Patient Time: Total time spent is greater than 50% in coordination of care (as documented) at patient's floor/unit and/or counseling patient:
--- NOTE | 2020-06-12 17:16 | PM.OBPRVD ---
OB - Delivery Note Procedure Delivery date: 06/12/20 Procedure: Spontaneous vaginal delivery events: Induced HTN Intrapartal events: None Induction method: per misoprostol protocol and per pitocin protocol Delivery augmentation: rupture of membranes Delivery monitor: external FHT Route of delivery: Specimen: Yes (Placenta and cord and cord blood ) Estimated blood loss (mL): 200 Anesthesia type: Epidural Disposition: floor Complications: None Narrative: She was admitted on 06/11 at 37 weeks for MIL for gestational hypertension. Hypertension labs normal. She was given cervidil. Her cervical exam /. Cervidil was removed in the am. Cervix /blottable. Pitocin started. She did receive epidural. She have AROM 1340. She progressed to complete. She delivered a male at 1700. was vigorously crying and placed on maternal abdomen. Delayed cord clamping for 40 sec until cord apulsatile. Cord was then double cut and clamped. Cord gases and cord blood obtained. Placenta delivered spontaneously and intact. No lacerations. Infant 6lb 3oz. Name - Agustin. Patient tolerated procedure well. Baby Date of : 06/12/20 Time of : 17:00 Weeks of gestation at delivery: 37 gender: Male Weight (pounds): 6 Weight (ounces): 3 presentation: vertex position: Right Occiput Anterior Placenta delivery description: Spontaneous score one minute: 8 score five minutes: 9
[2020-06-12] MEDS: OXYTOCIN 30 UNITS/NS 500 ML 30 UNITS/500 ML BAG 125 UNITS IV CONT (17:54)
[2020-06-12] MEDS: IBUPROFEN 600 MG TABLET PO (21:40)
[2020-06-13 05:01] LABS: Hematocrit 28.9 % (37.0-47.0); Hemoglobin 9.2 g/dL (12.0-15.0)
[2020-06-13] MEDS: IBUPROFEN 600 MG TABLET PO ×3 (05:44→18:34)
--- NOTE | 2020-06-13 07:45 | WPDANLDPN2 ---
Anes-Prog Note L&D Date/Time: 06/13/20 07:45 Comfortable throughout: labor and delivery Neuraxial method: epidural Epidural/Spinal procedure site: clean & non-tender Neuro status: Neuro function grossly intact. Cardiovascular status: normal Respiratory status: normal Airway patency: baseline Mental status: baseline Post-Op hydration status: normal Vital Signs: Last Vital Signs Temp 37.1 C 06/12/20 19:48 Pulse 93 06/12/20 19:48 Resp 16 06/12/20 19:48 BP 118/60 06/12/20 19:48 Pulse Ox 100 06/12/20 13:40 I/O: Intake & Output 06/12/20 06/12/20 06/13/20 15:59 23:59 07:59 Intake Total 1000 500 Output Total 360 Balance 1000 140 Post-procedural complaints: pruritis (brief, resolved early overnight) mild, no treatment Patient feedback: Patient satisfied with anesthetic care.
[2020-06-13 08:00] VITALS: BP 128/84; PULSE 75; RESP 20; TEMP 36.3; O2SAT 100
[2020-06-13] MEDS: POLYSACCHARIDE IRON COMPLEX 150 MG CAPSULE PO ×2 (08:07→17:40)
[2020-06-13] MEDS: DOCUSATE SODIUM 100 MG CAPSULE PO ×2 (08:07→17:40)
--- NOTE | 2020-06-13 12:43 | PM.OBPNVD ---
OB - PN: Subj Subjective Date/time seen: 06/13/20 12:43 Denies headache, scotomata or RUQ pain. Patient comments: pain well controlled, tolerating diet and other (Decreasing lochia.) Brandt baby status: doing well and nursing well OB - PN: Obj Data Labs CBC & Chem 7: 06/13/20 03:08 06/11/20 19:00 Labs: Laboratory Results - last 24 hr 06/13/20 03:08 Hgb 9.2 L Hct 28.9 L OB - PN A/P Plan day: 1 Plan: routine care Comments: Patient doing well. Blood pressures normal. Routine care. Time Spent With Patient Time: Total time spent is greater than 50% in coordination of care (as documented) at patient's floor/unit and/or counseling patient: Exam Psych: Affect: normal affect Other: Abd: fundus firm below umbilicus, nontender Perineum: healing Ext: nontender
[2020-06-13 16:45] VITALS: BP 127/86; PULSE 72; RESP 16; TEMP 37.2; O2SAT 99
[2020-06-13 18:34] VITALS: BP 130/81; PULSE 70; RESP 14; TEMP 36.7; O2SAT 99
[2020-06-13] MEDS: BENZOCAINE 20% AER SPR (*SP) 56 GM CAN 1 SPRAY TOPICAL (18:34)
[2020-06-13] MEDS: WITCH HAZEL 40 PADS 1 PAD TOPICAL (18:34)
[2020-06-14] MEDS: IBUPROFEN 600 MG TABLET PO (05:30)
[2020-06-14 08:40] VITALS: BP 131/83; PULSE 70; RESP 18; TEMP 36.4; O2SAT 100
[2020-06-14] MEDS: DOCUSATE SODIUM 100 MG CAPSULE PO (09:10)
[2020-06-14] MEDS: POLYSACCHARIDE IRON COMPLEX 150 MG CAPSULE PO (09:10)
[2020-06-14] MEDS: MULTIVIT/MIN/PREN/FOL AC/IRON TABLET 1 TAB PO (09:10)
--- NOTE | 2020-06-14 09:10 | PC.NURSE ---
Patient viewed the discharge video Mother & Baby Care, The First Two Weeks . Patient was given the opportunity and encouraged to ask questions. Patient verbalized understanding of information shared and has been given the mother/baby guide for home reference.
--- NOTE | 2020-06-14 10:03 | PM.OBPNVD ---
OB - PN: Subj Subjective Date/time seen: 06/14/20 10:03 No Headache scotomata or RUQ pain Patient comments: pain well controlled, tolerating diet and other (Decreasing lochia.) baby status: doing well and nursing well OB - PN: Obj Data Labs CBC & Chem 7: 06/13/20 03:08 06/11/20 19:00 OB - PN A/P Plan day: 2 Plan: discharge home and other Comments: Patient doing well. Follow up 4-6 weeks. Discharge instructions provided. Time Spent With Patient Time: Total time spent is greater than 50% in coordination of care (as documented) at patient's floor/unit and/or counseling patient: Time with patient: less than 15 minutes Exam Psych: Affect: normal affect Other: Abd: fundus firm below umbilicus, nontender Perineum: healing Ext: nontender
--- NOTE | 2020-06-14 10:06 | PM.OBDSVD ---
DS: Admitting Diagnosis Admitting Diagnosis Admitting Diagnosis: Gestational [-induced] hypertension without significant proteinuria, unspecified trimester DS: Discharge Diagnosis Discharge Diagnosis (1) Gestational hypertension: Code(s): O13.9 - Gestational [-induced] hypertension without significant proteinuria, unspecified trimester Status: Acute (2) Encounter for induction of labor: Code(s): Z34.90 - Encounter for supervision of normal , unspecified, unspecified trimester Status: Acute OB - DS: Summary OB Procedures : NST and PIH Mgmt OB Procedures Intrapartum: Spontaneous Vag Delivery OB Procedures: : None Time Spent with Patient Time attestation: Total time spent providing and/or coordinating discharge services: Exam Psych: Affect: normal affect Other: Abd: fundus firm below umbilicus, nontender Perineum: healing Ext: nontender DS: Data Data Completed and Pending Pending studies at discharge: Pending at discharge 06/12/20 17:04 Surgical [PTH] Routine Discharge Plan Discharge Attending physician on discharge: Carlos Garcia Discharging Clinician: Carlos Garcia Anticipated Discharge Date/Time: 06/14/20 10:04 Patient Disposition: Home, Self-Care Activity: pelvic rest Diet: regular Discharge Instructions: Pelvic rest for four to six weeks. Call for severe headache, visual problems or right upper quadrant pain. Call for fever, saturating more than a pad an hour or leg pain/swelling/redness. Patient Instructions: Antibiotic Form Stand Alone Forms: General Discharge Information Follow-up/Referrals: Carlos Garcia MD [Physician] - 1 Week Discharge Medications: No Action PNV [id number] [] 28 mg iron- 800 mcg Tablet 1 tablet PO DAILY RF: 0 Date of admission: 06/11/20 17:56 Primary Care Provider: LizbethMagalys Admitting Provider: Carlos Garcia Attending physician on admission: Carlos Garcia
[2020-06-15 09:25] VITALS: BP 135/81; PULSE 70; RESP 18; TEMP 36.9
== END 2020-06-14 12:08 | disposition home or self-care (01) | DRG 807 ==
LOC: ANHLDR 06-12 09:46 → ANHOB2 06-12 19:49
PROVIDERS: Admitting Provider Obstetrics & Gynecology; PCP Family Medicine; Visit Provider Obstetrics & Gynecology
DX: O13.4 Gestational [pregnancy-induced] hypertension without significant proteinuria, complicating childbirth (principal); Z37.0 Single live birth; Z3A.37 37 weeks gestation of pregnancy; O99.89 Other specified diseases and conditions complicating pregnancy, childbirth and the puerperium; N80.9 Endometriosis, unspecified
CPT/HCPCS: 36415; 80053; 84550; 85014; 85018; 85025; 86592; 86703; 86850; 86900; 86901; 87340; 88307; A9270; G0432; J2590; J2795; J7120

== ENCOUNTER 2020-08-27 16:30 | Outpatient (CLI) | payer OTHER, MEDICAID, SELFPAY ==
[2020-08-27 18:07] LABS: Thyroid Stimulating Hormone 0.873 uIU/mL (0.465-4.680)
[2020-08-27 18:39] LABS: Free T4 Free Thyroxine 0.87 ng/mL (0.78-2.19)
== END 2020-08-27 16:31 | disposition home or self-care (01) ==
LOC: ANHLAB 16:32
PROVIDERS: Visit Provider Obstetrics & Gynecology
DX: N92.6 Irregular menstruation, unspecified (principal)
CPT/HCPCS: 36415; 84439; 84443